=== PATIENT | female | born 1950 | race African-American/Black ===

== ENCOUNTER 2017-05-15 09:29 | Outpatient (CLI) | payer MEDICARE | END 2017-05-15 09:30 | disposition home or self-care (01) | LOC: BICMAMMO 09:29 | PROVIDERS: ATTEND Family Medicine | DX: Z12.31 Encounter for screening mammogram for malignant neoplasm of breast (principal); Z13.820 Encounter for screening for osteoporosis; Z78.0 Asymptomatic menopausal state | CPT/HCPCS: 77063; 77080; G0202; 77067 ==

== ENCOUNTER 2017-05-16 07:45 | Emergency (ER) | payer MEDICARE | END 2017-05-16 08:52 | disposition home or self-care (01) | LOC: ERS 07:45 | DX: H01.004 Unspecified blepharitis left upper eyelid (principal); H10.9 Unspecified conjunctivitis | CPT/HCPCS: 99282 ==

== ENCOUNTER 2018-09-19 18:19 | Emergency (ER) | payer MEDICARE, OTHER ==
[2018-09-19] MEDS ORDERED: Ketorolac Tromethamine 30 MG/ML VIAL ONE (18:52)
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
== END 2018-09-19 20:05 | disposition home or self-care (01) ==
LOC: ERS 18:19
DX: S40.012A Contusion of left shoulder, initial encounter (principal); S20.212A Contusion of left front wall of thorax, initial encounter; S50.12XA Contusion of left forearm, initial encounter; W18.30XA Fall on same level, unspecified, initial encounter
CPT/HCPCS: 96372; J1885

== ENCOUNTER 2018-10-07 15:09 | Observation (INO) | payer MEDICARE, OTHER ==
[~2018-10-07 15:09] MED LIST: ISOVUE-370 76%-LOCM 1 ML ONE
[2018-10-07] MEDS ORDERED: Fentanyl 100 MCG/2 ML VIAL ONE (15:19)
[2018-10-07 15:31] LABS: Hemoglobin 12.4 g/dL (12.0-16.0); Mean Corpuscular HGB CONC 33.1 g/dL (32.0-36.0); Mean Corpuscular Hemoglobin 27.3 pg (27.0-31.0); Mean Corpuscular Volume 82.5 fL (78.0-98.0); Mean Platelet Volume 7.2 fL (7.4-10.4); Platelet Count 300 thou/uL (130-400); RBC Distribution Width 13.4 % (11.5-14.5); Red Blood Cell (RBC) Count 4.54 mill/uL (4.20-5.40); White Blood Cell (WBC) Count 6.6 thou/uL (4.8-10.8)
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
[2018-10-07 15:44] LABS: ALT (SGPT) 10 U/L (8-55); AST (SGOT) 20 U/L (5-34); Alcohol Less than 10 mg/dL (Less than 10); Alkaline Phosphatase 62 U/L (40-150); Anion Gap 14 mmol/L (10-20); BUN (Urea Nitrogen) 16 mg/dL (9.8-20.1); Bilirubin, Total 0.3 mg/dL (0.2-1.2); Calc. Creatinine Clearance 0 mL/min (70-130); Calcium 9.6 mg/dL (7.8-10.44); Carbon Dioxide 24 mmol/L (23-31); Chloride 106 mmol/L (98-107); Estimated GFR-MDRD 62; Globulin 3.5 g/dL (2.4-3.5); Glucose 89 mg/dL (80-115); Potassium 3.9 mmol/L (3.5-5.1); Protein, Total 7.5 g/dL (6.0-8.3); Sodium 140 mmol/L (136-145)
[2018-10-07 15:45] LABS: Band 1 % (5-11); Eosinophils 4 % (0-10); Lymphocytes 62 % (21-51); MDiff Complete? YES; Monocytes 5 % (0-10); Neutrophil 26 % (42-75); Platelet Morphology Comment Appears Adequate; RBC Morphology Normal; Reactive Lymphocytes 2 % (0-10)
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
[2018-10-07] MEDS ORDERED: Morphine 2 MG/ML SYRINGE ONE (16:51)
[2018-10-07] MEDS ORDERED: Ondansetron PF 4 MG/2 ML Vial ONE (16:51)
[2018-10-07] MEDS ORDERED: Ondansetron ODT 4 MG TAB PO PRN (18:32)
[2018-10-07] MEDS ORDERED: Morphine 4 MG/ML VIAL SLOW IVP PRN ×2 (18:32)
[2018-10-07] MEDS ORDERED: hydrALAZINE 20 MG/ML VIAL SLOW IVP PRN (18:32)
[2018-10-07] MEDS ORDERED: Ondansetron PF 4 MG/2 ML Vial IVP PRN (18:32)
[2018-10-07] MEDS ORDERED: Cyclobenzaprine 10 MG TAB PO PRN (18:32)
[2018-10-07] MEDS ORDERED: Dextrose 50% Abboject 50 ML SYRINGE SLOW IVP PRN (18:32)
[2018-10-07] MEDS ORDERED: Dextrose 5% in Water 1,000 ML IV PRN (18:32)
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
[2018-10-07 19:11] VITALS: BMI 30.1
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
[2018-10-07] MEDS: Ketorolac Tromethamine 30 MG/ML VIAL IVP SCH (20:01)
[2018-10-07] MEDS: Acetaminophen 1,000 MG in Premix Bag 1 BAG IVPB SCH (20:02)
[2018-10-07] MEDS: Famotidine 20 MG TAB PO SCH (20:02)
[2018-10-07] MEDS: Sodium Chloride 0.9% 1,000 ML IV SCH (20:03)
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
[2018-10-08] MEDS: Acetaminophen 1,000 MG in Premix Bag 1 BAG IVPB SCH ×2 (01:17→08:35)
[2018-10-08] MEDS: Ketorolac Tromethamine 30 MG/ML VIAL IVP SCH ×4 (01:18→22:38)
[2018-10-08] MEDS: Sodium Chloride 0.9% 1,000 ML IV SCH (04:07)
[2018-10-08 06:02] LABS: #Basophils 0.1 thou/uL (0.0-0.2); #Eosinphils 0.3 thou/uL (0.0-0.7); #Monocytes 0.5 thou/uL (0.11-0.59); #Neutrophils 3.2 thou/uL (1.40-6.50); %Eosinophils 4.7 % (0.0-10.0); %Monocytes 7.5 % (0.0-10.0); %Neutrophils 53.9 % (42.0-75.0); Mean Corpuscular HGB CONC 32.7 g/dL (32.0-36.0); Mean Corpuscular Hemoglobin 27.3 pg (27.0-31.0); Mean Corpuscular Volume 83.6 fL (78.0-98.0); Platelet Count 255 thou/uL (130-400); RBC Distribution Width 13.3 % (11.5-14.5); Red Blood Cell (RBC) Count 4.02 mill/uL (4.20-5.40)
[2018-10-08 06:28] LABS: Anion Gap 11 mmol/L (10-20); BUN (Urea Nitrogen) 12 mg/dL (9.8-20.1); Calc. Creatinine Clearance 69 mL/min (70-130); Calcium 8.4 mg/dL (7.8-10.44); Carbon Dioxide 25 mmol/L (23-31); Chloride 106 mmol/L (98-107); Estimated GFR-MDRD 72; Glucose 98 mg/dL (80-115); Potassium 3.7 mmol/L (3.5-5.1); Sodium 138 mmol/L (136-145)
[2018-10-08] MEDS ORDERED: CEFAZOLIN 2 GM in Premix Bag 1 BAG IVPB SCH (08:00)
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
[2018-10-08 08:34] LABS: Magnesium 1.9 mg/dL (1.6-2.6); Phosphorus 3.4 mg/dL (2.3-4.7)
[2018-10-08] MEDS: Famotidine 20 MG TAB PO SCH ×2 (08:37→21:44)
[2018-10-08] MEDS ORDERED: Midazolam HCl 2 mg/2 ml Vial ONE (10:24)
[2018-10-08] MEDS ORDERED: Fentanyl 100 MCG/2 ML VIAL ONE (10:24)
[2018-10-08] MEDS ORDERED: Lidocaine 1% (PF) 30 ML VIAL ONE (10:24)
[2018-10-08] MEDS ORDERED: Potassium Phosphate 15 MMOL in Sodium Chloride 0.9% 250 ML 250 ML IVPB SCH (10:45)
[2018-10-08] MEDS ORDERED: Ondansetron PF 4 MG/2 ML Vial IVP PRN (11:52)
[2018-10-08] MEDS ORDERED: HYDROcodone/Acetaminophen 10/325 mg Tablet PO PRN ×2 (11:52)
[2018-10-08] MEDS ORDERED: Zolpidem Tartrate 5 MG TAB PO PRN (11:52)
[2018-10-08] MEDS ORDERED: traMADol HCl 50 MG TAB PO PRN (11:52)
[2018-10-08] MEDS ORDERED: Ropivacaine 0.2% 550 ML 550 ML NERVE BLCK SCH (11:52)
[2018-10-08] MEDS ORDERED: Promethazine HCl 25 MG/ML VIAL IM PRN (11:52)
[2018-10-08] MEDS ORDERED: Fentanyl 100 MCG/2 ML VIAL SLOW IVP PRN (11:53)
--- NOTE | 2018-10-08 13:13 | RAD ---
INTRAOPERATIVE RADIOGRAPH RIGHT FOOT: HISTORY: Open reduction internal fixation. FINDINGS: Images demonstrate surgical hardware seen in the fractured calcaneus. Transosseous screw seen across the fractured base of the fifth metatarsal. IMPRESSION: Open reduction internal fixation right foot fractures. Transcribed Date/Time: 10/08/2018 1:16 PM
[2018-10-08] MEDS ORDERED: Bupivacaine HCl 0.5%/Epinephrine 1:200,000/PF 30 ml Vial ONE (15:17)
[2018-10-08] MEDS ORDERED: Ropivacaine 0.5% HCl/PF (150 MG/30 ML VIAL) ONE (15:17)
[2018-10-08] MEDS ORDERED: Ropivacaine 0.2% HCl/PF (40 MG/20 ML VIAL) ONE (15:17)
[2018-10-08] MEDS ORDERED: ePHEDrine 50 MG/ML VIAL ONE (15:52)
[2018-10-08] MEDS ORDERED: Lidocaine 1% PF 5 ML VIAL ONE (15:52)
[2018-10-08] MEDS ORDERED: PROPOFOL 200 MG/20 ML VIAL ONE (15:52)
[2018-10-08] MEDS ORDERED: Ketorolac Tromethamine 30 MG/ML VIAL ONE (15:52)
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
[2018-10-08] MEDS: Acetaminophen 500 MG TAB PO SCH ×2 (18:13→22:37)
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
[2018-10-08] MEDS: Senokot S 8.6-50 MG TAB PO SCH (21:44)
[2018-10-08] MEDS: Enoxaparin Sodium 30 MG/0.3 ML SYRINGE SC SCH (21:44)
[2018-10-08] MEDS ORDERED: Ibuprofen 600 MG TAB PO SCH (22:00)
[2018-10-09] MEDS: Ibuprofen 600 MG TAB PO PRN ×2 (02:57→11:54)
[2018-10-09 05:20] LABS: #Lymphocytes 1.4 thou/uL (1.20-3.40); #Monocytes 0.7 thou/uL (0.11-0.59); #Neutrophils 7.2 thou/uL (1.40-6.50); %Basophils 0.2 % (0.0-1.0); %Eosinophils 0.3 % (0.0-10.0); %Lymphocytes 14.8 % (21.0-51.0); %Neutrophils 77.7 % (42.0-75.0); Hemoglobin 11.2 g/dL (12.0-16.0); Mean Corpuscular HGB CONC 32.4 g/dL (32.0-36.0); Mean Corpuscular Hemoglobin 27.3 pg (27.0-31.0); Mean Corpuscular Volume 84.3 fL (78.0-98.0); Mean Platelet Volume 7.4 fL (7.4-10.4); Platelet Count 240 thou/uL (130-400); RBC Distribution Width 13.3 % (11.5-14.5); Red Blood Cell (RBC) Count 4.11 mill/uL (4.20-5.40); White Blood Cell (WBC) Count 9.3 thou/uL (4.8-10.8)
[2018-10-09 05:44] LABS: Anion Gap 13 mmol/L (10-20); BUN (Urea Nitrogen) 10 mg/dL (9.8-20.1); Calc. Creatinine Clearance 81 mL/min (70-130); Calcium 8.7 mg/dL (7.8-10.44); Carbon Dioxide 23 mmol/L (23-31); Chloride 108 mmol/L (98-107); Estimated GFR-MDRD 86; Glucose 100 mg/dL (80-115); Magnesium 1.9 mg/dL (1.6-2.6); Phosphorus 2.7 mg/dL (2.3-4.7); Potassium 3.9 mmol/L (3.5-5.1); Sodium 140 mmol/L (136-145)
[2018-10-09] MEDS: Acetaminophen 500 MG TAB PO SCH ×4 (06:05→22:53)
[2018-10-09] MEDS ORDERED: PHOS-NAK 1 PKT PACK PO SCH ×2 (07:45→09:45)
[2018-10-09] MEDS: Senokot S 8.6-50 MG TAB PO SCH ×2 (09:11→20:32)
[2018-10-09] MEDS: traMADol HCl 50 MG TAB PO PRN ×2 (09:11→15:39)
[2018-10-09] MEDS: Polyethylene Glycol 3350 17 GM Packet PO SCH (09:11)
[2018-10-09] MEDS: Famotidine 20 MG TAB PO SCH ×2 (09:12→20:32)
[2018-10-09] MEDS: Enoxaparin Sodium 30 MG/0.3 ML SYRINGE SC SCH ×2 (09:13→20:31)
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
--- NOTE | 2018-10-10 02:24 | EKG ---
Test Reason : Blood Pressure : / mmHG Vent. Rate : 065 BPM Atrial Rate : 065 BPM P-R Int : 184 ms QRS Dur : 086 ms QT Int : 408 ms P-R-T Axes : 077 037 029 degrees QTc Int : 424 ms Normal sinus rhythm Normal ECG Confirmed by YUKO NICK MD ([id number]), writer editor GARRETT PATRICK ([id number]) on 10/10/2018 2:23:48 AM Referred By: Confirmed By:YUKO NICK MD
[2018-10-10] MEDS: Acetaminophen 500 MG TAB PO SCH ×3 (04:52→17:37)
[2018-10-10 06:17] LABS: Anion Gap 9 mmol/L (10-20); BUN (Urea Nitrogen) 9 mg/dL (9.8-20.1); Calc. Creatinine Clearance 75 mL/min (70-130); Calcium 8.6 mg/dL (7.8-10.44); Carbon Dioxide 27 mmol/L (23-31); Chloride 106 mmol/L (98-107); Estimated GFR-MDRD 79; Glucose 90 mg/dL (80-115); Magnesium 1.7 mg/dL (1.6-2.6); Phosphorus 2.3 mg/dL (2.3-4.7); Potassium 3.7 mmol/L (3.5-5.1); Sodium 138 mmol/L (136-145)
[2018-10-10] MEDS ORDERED: Magnesium 2 GM/50 ML 2 GM in Premix Bag 1 BAG IVPB SCH (07:45)
[2018-10-10] MEDS ORDERED: Potassium Phosphate 15 MMOL in Sodium Chloride 0.9% 250 ML 250 ML IVPB SCH (07:45)
[2018-10-10] MEDS: Famotidine 20 MG TAB PO SCH ×2 (08:50→21:44)
[2018-10-10] MEDS: Senokot S 8.6-50 MG TAB PO SCH ×2 (08:51→21:44)
[2018-10-10] MEDS: Enoxaparin Sodium 30 MG/0.3 ML SYRINGE SC SCH ×2 (08:51→21:44)
[2018-10-10] MEDS: traMADol HCl 50 MG TAB PO PRN ×2 (08:54→17:37)
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
[2018-10-10] MEDS: Polyethylene Glycol 3350 17 GM Packet PO SCH (18:08)
[2018-10-11] MEDS: Acetaminophen 500 MG TAB PO SCH ×5 (00:14→22:16)
[2018-10-11 05:38] LABS: Anion Gap 10 mmol/L (10-20); BUN (Urea Nitrogen) 9 mg/dL (9.8-20.1); Calc. Creatinine Clearance 80 mL/min (70-130); Calcium 8.7 mg/dL (7.8-10.44); Carbon Dioxide 28 mmol/L (23-31); Chloride 103 mmol/L (98-107); Estimated GFR-MDRD 85; Glucose 88 mg/dL (80-115); Magnesium 2.1 mg/dL (1.6-2.6); Phosphorus 2.9 mg/dL (2.3-4.7); Potassium 4.1 mmol/L (3.5-5.1); Sodium 137 mmol/L (136-145)
[2018-10-11] MEDS: traMADol HCl 50 MG TAB PO PRN (07:08)
[2018-10-11] MEDS: Enoxaparin Sodium 30 MG/0.3 ML SYRINGE SC SCH ×2 (08:39→20:27)
[2018-10-11] MEDS: Famotidine 20 MG TAB PO SCH ×2 (08:39→20:27)
[2018-10-11] MEDS: Polyethylene Glycol 3350 17 GM Packet PO SCH (08:42)
[2018-10-11] MEDS: Senokot S 8.6-50 MG TAB PO SCH ×2 (08:43→19:43)
[2018-10-11] MEDS ORDERED: traMADol HCl 50 MG TAB PO PRN (10:30)
[2018-10-11] MEDS ORDERED: traMADol HCl 50 MG TAB PO SCH (12:00)
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
[2018-10-11] MEDS: Ibuprofen 600 MG TAB PO SCH ×2 (14:08→20:27)
[2018-10-11] MEDS: traMADol HCl 50 MG TAB PO SCH ×2 (14:09→19:00)
[2018-10-11] MEDS: Gabapentin 100 MG CAP PO SCH ×2 (14:09→20:27)
[2018-10-12] MEDS: traMADol HCl 50 MG TAB PO SCH ×4 (02:00→18:01)
[2018-10-12] MEDS: Acetaminophen 500 MG TAB PO SCH ×3 (06:00→18:01)
[2018-10-12] MEDS: Ibuprofen 600 MG TAB PO SCH ×3 (06:30→21:02)
[2018-10-12] MEDS: Enoxaparin Sodium 30 MG/0.3 ML SYRINGE SC SCH ×2 (09:04→21:03)
[2018-10-12] MEDS: Polyethylene Glycol 3350 17 GM Packet PO SCH (09:05)
[2018-10-12] MEDS: Gabapentin 100 MG CAP PO SCH ×3 (09:05→21:02)
[2018-10-12] MEDS: Famotidine 20 MG TAB PO SCH ×2 (09:05→21:02)
[2018-10-12] MEDS: Senokot S 8.6-50 MG TAB PO SCH ×2 (09:05→21:02)
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
[2018-10-13] MEDS: Acetaminophen 500 MG TAB PO SCH ×4 (00:08→18:08)
[2018-10-13] MEDS: traMADol HCl 50 MG TAB PO SCH ×4 (00:09→18:08)
[2018-10-13] MEDS: Ibuprofen 600 MG TAB PO SCH ×3 (05:49→20:54)
[2018-10-13] MEDS: Famotidine 20 MG TAB PO SCH ×2 (09:28→20:55)
[2018-10-13] MEDS: Gabapentin 100 MG CAP PO SCH ×3 (09:28→20:54)
[2018-10-13] MEDS: Senokot S 8.6-50 MG TAB PO SCH ×2 (09:29→20:55)
[2018-10-13] MEDS: Enoxaparin Sodium 30 MG/0.3 ML SYRINGE SC SCH ×2 (09:29→20:55)
[2018-10-13] MEDS: Polyethylene Glycol 3350 17 GM Packet PO SCH (09:29)
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
[2018-10-14] MEDS: traMADol HCl 50 MG TAB PO SCH ×4 (00:18→18:29)
[2018-10-14] MEDS: Acetaminophen 500 MG TAB PO SCH ×5 (00:18→23:51)
[2018-10-14] MEDS: Ibuprofen 600 MG TAB PO SCH ×3 (05:37→23:51)
[2018-10-14] MEDS: Enoxaparin Sodium 30 MG/0.3 ML SYRINGE SC SCH ×2 (08:49→19:56)
[2018-10-14] MEDS: Gabapentin 100 MG CAP PO SCH ×3 (08:50→19:56)
[2018-10-14] MEDS: Famotidine 20 MG TAB PO SCH ×2 (08:50→19:57)
[2018-10-14] MEDS: Polyethylene Glycol 3350 17 GM Packet PO SCH (08:59)
[2018-10-14] MEDS: Senokot S 8.6-50 MG TAB PO SCH ×2 (09:00→19:57)
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
[2018-10-15] MEDS: Acetaminophen 500 MG TAB PO SCH ×2 (05:58→11:13)
[2018-10-15] MEDS: Ibuprofen 600 MG TAB PO SCH (06:36)
[2018-10-15] MEDS: traMADol HCl 50 MG TAB PO SCH ×2 (06:36)
[2018-10-15] MEDS: Gabapentin 100 MG CAP PO SCH (08:47)
[2018-10-15] MEDS: Famotidine 20 MG TAB PO SCH (08:47)
[2018-10-15] MEDS: Polyethylene Glycol 3350 17 GM Packet PO SCH (08:47)
[2018-10-15] MEDS: Enoxaparin Sodium 30 MG/0.3 ML SYRINGE SC SCH (08:47)
[2018-10-15] MEDS: Senokot S 8.6-50 MG TAB PO SCH (08:48)
[2018-10-15 11:46] VITALS: BP 138/72; TEMP 98
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
== END 2018-10-15 13:04 ==
LOC: ERS 15:09 → SURG B 18:31
PROVIDERS: ADMIT Surgery; ATTEND Surgery
PROC: 0QSL04Z Reposition Right Tarsal with Internal Fixation Device, Open Approach (ICD-10-PCS; principal; 2018-10-07)
PROC: 0QSN04Z Reposition Right Metatarsal with Internal Fixation Device, Open Approach (ICD-10-PCS; 2018-10-07)
DX: S92.001A Unspecified fracture of right calcaneus, initial encounter for closed fracture (principal); S92.351A Displaced fracture of fifth metatarsal bone, right foot, initial encounter for closed fracture; S93.324A Dislocation of tarsometatarsal joint of right foot, initial encounter; S22.20XA Unspecified fracture of sternum, initial encounter for closed fracture; V89.2XXA Person injured in unspecified motor-vehicle accident, traffic, initial encounter
CPT/HCPCS: 28415; 28485; 70450; 71045; 71260; 72125; 73590; 73630 ×2; 73700; 74177; 76000; 80048 ×4; 80053; 80307; 83735 ×4; 84100 ×4; 84484; 85025 ×3; 93005; 96361 ×2; 96365; 96366; 96367 ×2; 96372 ×8; 96374; 96375 ×2; 96376 ×2; 97110 ×3; 97116 ×4; 97139 ×6; 97530 ×3; 99285; A4306; C1713; G0378 ×3; 36415; G0390; J0131; J0670; J0690; J1650; J1885; J2001; J2250; J2270; J2405; J2704; J2795; J3010; J3475; J3490; J7050; J7620; Q9966

== ENCOUNTER 2019-01-15 11:58 | Emergency (ER) | payer MEDICARE ==
[2019-01-15 12:47] LABS: #Eosinphils 0.1 thou/uL (0.0-0.7); #Lymphocytes 1.7 thou/uL (1.20-3.40); #Monocytes 0.3 thou/uL (0.11-0.59); #Neutrophils 2.1 thou/uL (1.40-6.50); %Basophils 0.8 % (0.0-1.0); %Lymphocytes 39.3 % (21.0-51.0); %Monocytes 7.3 % (0.0-10.0); %Neutrophils 49.6 % (42.0-75.0); Hemoglobin 10.8 g/dL (12.0-16.0); Mean Corpuscular HGB CONC 32.7 g/dL (32.0-36.0); Mean Corpuscular Hemoglobin 27.9 pg (27.0-31.0); Mean Corpuscular Volume 85.3 fL (78.0-98.0); Mean Platelet Volume 7.5 fL (7.4-10.4); Platelet Count 291 thou/uL (130-400); Red Blood Cell (RBC) Count 3.89 mill/uL (4.20-5.40); White Blood Cell (WBC) Count 4.2 thou/uL (4.8-10.8)
[2019-01-15 13:08] LABS: ALT (SGPT) Less than 7 U/L (8-55); AST (SGOT) 14 U/L (5-34); Alkaline Phosphatase 63 U/L (40-150); Anion Gap 12 mmol/L (10-20); BUN (Urea Nitrogen) 11 mg/dL (9.8-20.1); Bilirubin, Total 0.4 mg/dL (0.2-1.2); Calc. Creatinine Clearance 0 mL/min (70-130); Calcium 9.3 mg/dL (7.8-10.44); Carbon Dioxide 30 mmol/L (23-31); Chloride 105 mmol/L (98-107); Estimated GFR-MDRD 75; Globulin 3.3 g/dL (2.4-3.5); Glucose 99 mg/dL (80-115); Protein, Total 7.3 g/dL (6.0-8.3); Sodium 144 mmol/L (136-145)
[2019-01-15 13:10] LABS: Potassium 2.8 mmol/L (3.5-5.1)
--- NOTE | 2019-01-15 13:26 | ULT ---
EXAM: Right lower extremity venous ultrasound HISTORY: Right lower extremity pain and edema COMPARISON: None TECHNIQUE: Multiplanar grayscale and color Doppler images were obtained in a right lower extremity ve nous ultrasound. Spectral analysis of the Doppler waveforms were performed. FINDINGS: The common femoral vein, profunda femoral vein, superficial femoral vein, and popliteal vei n are normal in appearance without visible thrombus. These vessels demonstrate normal compression, flow, and augmentation. The posterior tibial vein and greater saphenous vein are patent without evidence of thrombus. IMPRESSION: No evidence of DVT.
[2019-01-15] MEDS ORDERED: Potassium Chloride 20 MEQ TAB ONE (13:27)
== END 2019-01-15 14:49 | disposition home or self-care (01) ==
LOC: ERS 11:58
DX: R60.0 Localized edema (principal); E87.6 Hypokalemia
CPT/HCPCS: 36415; 80053; 85025; 85379

== ENCOUNTER 2019-03-09 12:22 | Emergency (ER) | payer MEDICARE ==
--- NOTE | 2019-03-09 14:09 | RAD ---
3 VIEWS RIGHT FOOT: Date: 03/09/19 COMPARISON: 10/08/18. HISTORY: Foot pain and swelling for several months. FINDINGS: 3 views of the right foot show hardware along the lateral aspect of the hindfoot. There is a screw in the fifth metatarsal. There is first metatarsal head hyperplasia and hallux valgus deformity of the great toe. Moderate diffuse degenerative changes are seen. There is no evidence of acute fracture or dislocation. IMPRESSION: 1. Postsurgical changes of the foot as above. 2. Degenerative changes of the great toe. POS: ROXY
== END 2019-03-09 14:35 | disposition home or self-care (01) ==
LOC: ERS 12:22
DX: M79.671 Pain in right foot (principal)

== ENCOUNTER 2020-03-09 11:05 | Emergency (ER) | payer MEDICARE ==
--- NOTE | 2020-03-09 12:08 | RAD ---
XR Knee Rt 4 View STANDARD HISTORY: Right knee pain FINDINGS: No fracture or dislocation is identified. Mild degenerative changes are present. No joint effusion is seen.
== END 2020-03-09 13:27 | disposition home or self-care (01) ==
LOC: ERS 11:05
DX: M25.561 Pain in right knee (principal)

== ENCOUNTER 2022-07-29 12:44 | Outpatient (CLI) | payer MEDICARE | END 2022-07-29 12:45 | disposition home or self-care (01) | LOC: MRI 12:44 | PROVIDERS: ATTEND Family Medicine | DX: F02.80 Dementia in other diseases classified elsewhere, unspecified severity, without behavioral disturbance, psychotic disturbance, mood disturbance, and anxiety (principal) | CPT/HCPCS: 70551 ==